=== PATIENT | female | born 1940 | race Caucasian/White ===

== ENCOUNTER 2020-02-24 13:50 | Emergency (ER) | payer MEDICARE, SELFPAY ==
[2020-02-24 14:06] VITALS: BP 146/82; PULSE 88; RESP 18; TEMP 37; O2SAT 98
--- NOTE | 2020-02-24 14:16 | ED.SKABFB ---
HPI - Skin/Abscess/Foreign Bdy General Chief complaint: Skin/Abscess/Foreign Body Stated complaint: swollen feet/legs Time Seen by Provider: 02/24/20 14:17 Source: patient Mode of arrival: ambulatory Limitations: no limitations History of Present Illness HPI narrative: Genoveva Sharp is 79 yo female with PMH of dementia, mild hypertension, comes to express care with pressure sores on her toes, and swelling of legs that has been present for weeks. She states she finds it hard to walk because of her toes and toenails that need to be cut and debrided by commercial relief driver Related Data Home Medications Medication Instructions Recorded Confirmed memantine mg 02/24/20 memantine mg 02/24/20 sertraline mg 02/24/20 Allergies Allergy/AdvReac Type Severity Reaction Status Date / Time Sulfa (Sulfonamide Allergy Mild Confusion Verified 09/14/15 10:37 Antibiotics) levofloxacin Allergy Unknown Verified 08/24/12 10:18 sulfanilamide Allergy Unknown Verified 07/08/10 09:59 Review of Systems Review of Systems: Narrative: CONSTITUTIONAL: Denies fever, chills, sweats. EYES: Denies visual changes, redness, discharge. ENT: Denies rhinorrhea, congestion, sore throat, otalgia. CARDIOVASCULAR: Denies chest pain, palpitations, edema. RESPIRATORY: Denies dyspnea, wheezing, cough GASTROINTESTINAL: Denies abdominal pain, nausea, vomiting, diarrhea. GENITOURINARY: Denies dysuria, hematuria, abnormal discharge SKIN: Denies rash or itching. NEUROLOGIC: Denies numbness, or focal weakness. PSYCHIATRIC: Denies anxiety or depression. Mild swelling of legs bilaterally; those are mildly inflamed with calluses and nails that need to be trimmed PMFSH Family History Family History Other Heart disease Hypertension Social History Social History Smoking packs per day: 0.25 Smoking cigarettes per day: 5.0 Smoking status: Current every day smoker Tobacco type: cigarettes Alcohol intake: former Comments At time of signature, I agree with nursing past medical, surgical, social and family history. There is no relevant family history pertinent to the presenting complaint. Exam Narrative: Exam Narrative: GENERAL: This is a well-nourished, well-developed patient, in mild distress. HEAD: normocephalic, atraumatic. EYES: Sclera clear/white. Vision is grossly intact. EARS: External ears normal, a. Hearing grossly intact. NOSE: External nose normal without nasal discharge, nares without redness, no rhinorrhea. THROAT: Mucous membranes moist NECK: Neck supple, r CARDIOVASCULAR: Regular rate and rhythm without murmurs, gallops, or rubs. RESPIRATORY: Clear to auscultation. Breath sounds equal bilaterally. No wheezes, rales, or rhonchi. GASTROINTESTINAL: Abdomen soft, SKIN: warm, intact with no suspicious lesions or rash, good texture and turgor. NEURO: awake, alert, and oriented to person, place and time. She tends to repeat stories and explanations; there were no obvious focal neurologic abnormalities. Steady gait EXTREMITIES: Normal range of motion. Does have pressures calluses and nails need to be trimmed; she does not have pitting edema of her legs although there is swelling and her lower legs right greater than left, appears less than 3 cm difference, knee replacement on R with some discomfort BACK: Nontender without deformity Course Course Emergency Course: Referred back to her commercial relief driver appointment this week for attention to her feet Discussed with daughter giving her different shoes decrease pressure on toes and bottom of feet Demonstrated wrap of using Eduardo of lower legs when she is sitting or having her legs elevated to decrease pressure She call PCP in the morning for repeat blood work Vital Signs Vital signs: Vital Signs Temperature 98.6 F 02/24/20 14:06 Pulse Rate 88 02/24/20 14:06 Respiratory Rate 18 02/10
== END 2020-02-24 14:52 | disposition home or self-care (01) ==
PROVIDERS: Emergency Provider Nurse Practitioner; PCP Nurse Practitioner Psychiatric/Mental Health
DX: R60.0 Localized edema (principal); L53.8 Other specified erythematous conditions; F03.90 Unspecified dementia, unspecified severity, without behavioral disturbance, psychotic disturbance, mood disturbance, and anxiety; I10 Essential (primary) hypertension; F17.210 Nicotine dependence, cigarettes, uncomplicated
CPT/HCPCS: 99212; G0463

== ENCOUNTER 2020-08-04 10:16 | Emergency (ER) | payer MEDICARE, SELFPAY ==
--- NOTE | ~2020-08-04 | XR_ITS ---
EXAMINATION: XR chest 2V EXAM DATE: 08/04/2020 11:06 INDICATION: Dizziness, frequent falls. Transient alteration of awareness. TECHNIQUE: Frontal and lateral projections of the chest obtained and reviewed. Comparison is made to prior examination from 05/25/2012. FINDINGS: Compared to prior examination, development of some prominent basilar reticulation, suspecte d most likely chronic interstitial lung disease given that heart is within normal size limits. The brice ngs are clear. There are no pleural effusions. Cardiomediastinal silhouette is normal. There is no pneumothorax suspected. The bones and soft tissues are unremarkable. IMPRESSION: Development of some prominent basilar reticulation suspected most likely chronic intersti tial lung disease. Reviewed, dictated and finalized at location B. TIC CUTTER IMPRESSION: Development of some prominent basilar reticulation suspected most l ikely chronic interstitial lung disease.
--- NOTE | ~2020-08-04 | CT_ITS ---
EXAMINATION: CT brain wo con DATE: 08/04/2020 11:03 INDICATION: Head injury. TECHNIQUE: Computed tomography (CT) of the head was performed without intravenous contrast. The mA wa s adjusted according to patient size. Iterative reconstruction technique was employed. The dose-lengt h product was 605.33 mGy-cm. COMPARISON: Head CT 10/03/2009 FINDINGS: There are scattered areas of low attenuation in the cerebral white matter. There is no intr acranial hemorrhage, acute infarction, or abnormal intracranial mass lesion. There is an old lacunar infarct in right caudate nucleus. The ventricles are normal in size. There is mild mucosal thickening in the ethmoid sinuses. The mastoid air cells are normal. The orbits are normal. There is frontal sc alp soft tissue swelling. IMPRESSION: 1. Old lacunar infarct in right caudate nucleus. 2. Worsened extensive nonspecific cerebral white matter disease, which likely represents chronic smal l vessel ischemic disease. Reviewed, dictated and finalized at location A. HT SHIFTER IMPRESSION: 1. Old lacunar infarct in right caudate nucleus. 2. Worsened extensive nonspecific cerebral white matter disease, which likely r epresents chronic small vessel ischemic disease.
--- NOTE | 2020-08-04 10:16 | ED.DIZZY ---
HPI - Dizziness General Chief Complaint: Dizziness Stated Complaint: fall, dizzy Source: EMS Mode of arrival: EMS Limitations: dementia History of Present Illness HPI Narrative: Patient is an 79-year-old female with a history of Alzheimer's dementia who presents for evaluation of dizziness and a ground level fall at home earlier this morning. Patient is not able to provide history due to degree of Alzheimer's, she is denying any complaints at this time. She is alert to person, not to place or time. Apparently, patient was evaluated at [facility] after having a fall overnight and was discharged home with diagnosis of UTI given a prescription for an antibiotic. Patient has not filled that yet this morning. Per EMS, family called because she was not able to stand without falling. Related Data Home Medications Medication Instructions Recorded Confirmed memantine mg 02/24/20 memantine mg 02/24/20 sertraline mg 02/24/20 Allergies Allergy/AdvReac Type Severity Reaction Status Date / Time Sulfa (Sulfonamide Allergy Mild Confusion Verified 08/04/20 10:37 Antibiotics) levofloxacin Allergy Unknown Unknown Verified 08/04/20 10:37 sulfanilamide Allergy Unknown Unknown Verified 08/04/20 10:37 Review of Systems Review of Systems: ROS unobtainable: Yes unobtainable due to medical condition PMFSH Past Medical History Medical History Dementia Hypertension Smoking Family History Family History Other Heart disease Hypertension Social History Social History Smoking packs per day: 0.25 Smoking cigarettes per day: 5.0 Smoking status: Current every day smoker Tobacco type: cigarettes Alcohol intake: former Exam Narrative: Exam Narrative: GENERAL: Awake, alert, conversant HEAD: Normocephalic, abrasion to forehead EYES: 2+ PERRLA and EOMI. ENT: Nares clear, no rhinorrhea or epistaxis. Mucous membranes moist. NECK: Supple. CHEST: No respiratory distress, breathing even and non labored HEART: Regular rate, sinus rhythm ABDOMEN:Non distended, non tender EXTREMITIES: Normal range of motion. No edema. SKIN: Warm, dry, no rash. NEURO:No focal deficits. Alert and oriented x1. Pt ambulatory with a narrow based steady gait. No ataxia. Does not require assistance with ambulation. Course Vital Signs Vital signs: Vital Signs Temperature 36.3 C L 08/04/20 10:23 Pulse Rate 78 08/04/20 10:23 Respiratory Rate 18 08/04/20 10:23 Blood Pressure 121/68 08/04/20 10:23 Pulse Oximetry 98 08/04/20 10:23 Temperature 36.3 C L 08/04/20 10:23 Pulse Rate 74 08/04/20 14:01 Respiratory Rate 18 08/04/20 14:01 Blood Pressure 116/93 H 08/04/20 14:01 Pulse Oximetry 100 08/04/20 14:01 MDM - Dizziness MDM Narrative Medical decision making narrative: Patient presented for evaluation of a fall, repeat evaluation after discharge from another facility. At the time of assessment, patient has a history of advanced Alzheimer's dementia per family, typically is only oriented to person, not reliably otherwise oriented. Patient not able to provide any history. She has a hematoma to her forehead without laceration. She is not reporting any pain and her vital signs are stable. Laboratory results and imaging results are reassuring. Pt with history of CVA per family and I did discuss the CT scan results with them. Patient was actually able to stand up, get entirely dressed and ambulate to a chair independently without any unsteadiness. Her urinalysis is completely normal and not consistent with a urinary tract infection. I do not have access to records from other facility, I did explain the patient's laboratory results and imaging results over the phone to her daughter who is her power of assistant attorney general. At this point, they do not wish for her to be admitted and will work on placement from at home.
[2020-08-04 10:23] VITALS: BP 121/68; PULSE 78; RESP 18; TEMP 36.3; O2SAT 98
--- NOTE | 2020-08-04 10:24 | ECG_ITS ---
Measurements Intervals [place] Rate: 68 P: 29 MN: 162 QRS: -23 QRSD: 83 T: -6 QT: 363 QTc: 388 Interpretive Statements SINUS RHYTHM LOW QRS VOLTAGE IN PRECORDIAL LEADS POOR R WAVE PROGRESSION, ANTERIOR LEADS BORDERLINE T WAVE ABNORMALITY- ANTEROLAT/INF LEADS BASELINE ARTIFACT- I, II, AVR, AVL, AVF, V1-V2 BORDERLINE ECG Electronically Signed On 08-04-2020 11:00:56 COMMERCIAL HVAC SERVICE TECHNICIAN by Robles Mims D.O.
[2020-08-04] MEDS: SODIUM CHLORIDE 0.9% IV 1,000 ML 999 ML IV CONT (12:17)
--- NOTE | 2020-08-04 12:21 | PC.NURSE ---
Spoke with Eusebio from lab phlebotomy, multiple RN's attempted blood draw. Pt here 2hrs and still unable to get blood. He will come to ER to attempt.
[2020-08-04 12:57] LABS: Basophils Percent Auto 0.2 % (0.2-1.2); Eosinophils Absolute Auto 0.2 K/mm3 (0-0.3); Eosinophils Percent Auto 2.2 % (0-4.4); Hematocrit 34.8 % (37.0-47.0); Hemoglobin 11.1 g/dL (12.0-15.0); Immature Granulocyte Absolute 0.03 K/mm3 (0.00-0.031); Immature Granulocyte Percent A 0.3 % (0-0.5); Lymphocytes Absolute Auto 0.91 K/mm3 (0.9-3.2); Lymphocytes Percent Auto 10.2 % (18.3-44.2); Mean Corpuscular HGB Conc 31.9 g/dl (32-36); Mean Corpuscular Hemoglobin 32.1 pg (26-34); Mean Corpuscular Volume 100.6 fl (80-100); Monocytes Absolute Auto 0.4 K/mm3 (0.1-0.6); Monocytes Percent Auto 4.9 % (2.6-8.5); Neutrophils Absolute Auto 7.3 K/mm3 (1.3-6.7); Neutrophils Percent Auto 82.2 % (45.5-73.1); Platelet Count Result 288 k/mm3 (150-375); Red Blood Count 3.46 M/mm3 (4.2-5.4); Red Cell Distribution Width 14.1 % (11.5-14.5); White Blood Count 8.9 K/mm3 (4.5-10.0)
[2020-08-04 13:09] LABS: Anion Gap 6 mmol/L (8-16); Blood Urea Nitrogen 30 mg/dL (7-17); Calcium 9.4 mg/dL (8.4-10.2); Carbon Dioxide 28 mmol/L (22-30); Chloride 104 mmol/L (98-107); Estimated CRCL calculation 36 ml/min; Estimated Glomerular Filt Rate 53; Glucose 100 mg/dL (65-105); Potassium 4.5 mmol/L (3.4-5.0); Sodium 138 mmol/L (137-145)
[2020-08-04 13:40] LABS: Add Urine Microscopic? NO; Appearance Urine Clear (Clear); Bilirubin Urine Negative (Negative); Blood Urine Negative (Negative); Color Urine Yellow (Yellow); Glucose Urine UA Negative (Negative); Ketones Urine Negative (Negative); Leukocyte Esterase Ur Negative LEU/UL (Negative); Nitrate Urine Negative (Negative); Protein Urine Negative (Negative); RBC Urine 0-2 /hpf (0-2); Specific Grav Ur 1.019 (1.001-1.035); Urobilinogen Urine Negative mg/dL (<2.0); WBC Urine 0-3 /hpf
[2020-08-04 14:01] VITALS: BP 116/93; PULSE 74; RESP 18; O2SAT 100
--- NOTE | 2020-08-04 14:02 | PC.NURSE ---
This RN into pts room. Pt has gotten out of bed ( that had both side rails up) and was pulling equipment off barr. Pt has pulled her IV out and had put her shoes and sweatshirt back on. Pt was walking back and forth in room. This RN tired to get pt back into bed but was unsuccessful. Placed pt in chair and called for viscose cellar charge hand. senior j2ee developer came and called for a sitter. Sitter is currently at bedside.
--- NOTE | 2020-08-07 16:11 | ED.GENADULT ---
HPI - General Adult General Chief complaint: Dizziness Stated complaint: fall, dizzy Source: patient and EMS Mode of arrival: wheelchair Limitations: dementia History of Present Illness HPI narrative: Patient is an 79-year-old female with a history of Alzheimer's dementia who presents to our facility for evaluation of reported shortness of breath. Patient's daughter states that she had been feeling unwell today, had briefly reported some shortness of breath to her daughter while at rest earlier. Patient is currently denying any shortness of breath. States that she feels good. She denies cough or wheezing. She denies chest pain. Patient's daughter states she has been tolerating oral intake. No fevers. She has not had any cough. Patient has had increased difficulty with ADLs over the past week. They have someone coming to evaluate the patient for placement in a [place] [facility] facility tomorrow per daughter. No recent falls or injuries. Patient's daughter also thinks she has been a little bit more confused from baseline over the past week in general. Related Data Home Medications Medication Instructions Recorded Confirmed memantine mg 02/24/20 memantine mg 02/24/20 sertraline mg 02/24/20 Allergies Allergy/AdvReac Type Severity Reaction Status Date / Time Sulfa (Sulfonamide Allergy Mild Confusion Verified 08/04/20 10:37 Antibiotics) levofloxacin Allergy Unknown Unknown Verified 08/04/20 10:37 sulfanilamide Allergy Unknown Unknown Verified 08/04/20 10:37 Review of Systems Review of Systems: Narrative: Per daughter: CONSTITUTIONAL: Denies fever EYES: Denies visual changes ENT: Denies rhinorrhea, congestion CARDIOVASCULAR: Denies chest pain RESPIRATORY: Denies cough, reports earlier shortness of breath GASTROINTESTINAL: Denies abdominal pain, nausea, vomiting GENITOURINARY: Denies dysuria or hematuria. SKIN: Denies rash or itching. MUSCULOSKELETAL: Denies back pain NEUROLOGIC: Denies headache, numbness PMFSH Past Medical History Medical History Dementia Hypertension Smoking Family History Family History Other Heart disease Hypertension Social History Social History Smoking packs per day: 0.25 Smoking cigarettes per day: 5.0 Smoking status: Current every day smoker Tobacco type: cigarettes Alcohol intake: former Exam Narrative: Exam Narrative: GENERAL: Awake, alert, conversant HEAD: Normocephalic, atraumatic. EYES: PERRLA and EOMI. ENT: Nares clear, no rhinorrhea or epistaxis. Mucous membranes moist. NECK: Supple. CHEST: No respiratory distress, breathing even and non labored HEART: Regular rate, sinus rhythm ABDOMEN:Non distended, non tender EXTREMITIES: Normal range of motion. No edema. SKIN: Warm, dry, no rash. NEURO:No focal deficits. Alert and oriented x1-2. Patient ambulatory in room from wheelchair to bed without difficulty or need for assistance. Course Vital Signs Vital signs: Vital Signs Temperature 36.3 C L 08/04/20 10:23 Pulse Rate 78 08/04/20 10:23 Respiratory Rate 18 08/04/20 10:23 Blood Pressure 121/68 08/04/20 10:23 Pulse Oximetry 98 08/04/20 10:23 Temperature 36.3 C L 08/04/20 10:23 Pulse Rate 74 08/04/20 14:01 Respiratory Rate 18 08/04/20 14:01 Blood Pressure 116/93 H 08/04/20 14:01 Pulse Oximetry 100 08/04/20 14:01 Medical Decision Making Vital Signs Vital Signs: Vital Signs Temperature 36.3 C L 08/04/20 10:23 Pulse Rate 78 08/04/20 10:23 Respiratory Rate 18 08/04/20 10:23 Blood Pressure 121/68 08/04/20 10:23 Pulse Oximetry 98 08/04/20 10:23 Temperature 36.3 C L 08/04/20 10:23 Pulse Rate 74 08/04/20 14:01 Respiratory Rate 18 08/04/20 14:01 Blood Pressure 116/93 H 08/04/20 14:01 Pulse Oximetry 100 08/04/20 14:01 Lab Data Result diagrams: 08/04/20 12:49
[2020-08-07 17:57] LABS: Add Urine Microscopic? YES; Appearance Urine Clear (Clear); Bilirubin Urine Negative (Negative); Blood Urine Negative (Negative); Color Urine Yellow (Yellow); Glucose Urine UA Negative (Negative); Ketones Urine Negative (Negative); Leukocyte Esterase Ur 1+ LEU/UL (Negative); Mucus Urine Rare /lpf; Nitrate Urine Negative (Negative); Protein Urine 1+ mg/dL (Negative); RBC Urine 0-2 /hpf (0-2); Squamous Epithelial Cell Urine Occasional /hpf (Few); WBC Urine 0-3 /hpf
== END 2020-08-04 15:28 | disposition home or self-care (01) ==
PROVIDERS: Emergency Provider Emergency Medicine; PCP Nurse Practitioner Psychiatric/Mental Health
DX: G30.9 Alzheimer's disease, unspecified (principal); F02.80 Dementia in other diseases classified elsewhere, unspecified severity, without behavioral disturbance, psychotic disturbance, mood disturbance, and anxiety; I10 Essential (primary) hypertension; F17.210 Nicotine dependence, cigarettes, uncomplicated; W19.XXXA Unspecified fall, initial encounter; R94.31 Abnormal electrocardiogram [ECG] [EKG]; R90.82 White matter disease, unspecified; R91.8 Other nonspecific abnormal finding of lung field
CPT/HCPCS: 36415; 70450; 71046; 80048; 81001; 81003; 85025; 93005; 96360; 99284; J7030

== ENCOUNTER 2020-08-07 16:02 | Emergency (ER) | payer MEDICARE, SELFPAY ==
--- NOTE | ~2020-08-07 | XR_ITS ---
EXAMINATION: XR chest 2V DATE: 08/07/2020 17:14 INDICATION: Dyspnea. Confusion. TECHNIQUE: Frontal and lateral views of the chest were obtained. COMPARISON: Chest 2 views 08/04/2020, 05/25/2012 FINDINGS: There are interstitial opacities in the mid and lower lung zones. No pleural effusion or pn eumothorax. The heart size is normal. Surgical clips in the right upper quadrant are likely from chol ecystectomy. There are multiple chronic vertebral body fractures. IMPRESSION: 1. Interstitial opacities in the mid and lower lung zones, consistent with mild pulmonary edema versu s atelectasis/scarring. Reviewed, dictated and finalized at location A. KERCHIEF CUTTER IMPRESSION: 1. Interstitial opacities in the mid and lower lung zones, consistent with mild pulmonary edema versus atelectasis/scarring.
--- NOTE | ~2020-08-07 | CT_ITS ---
EXAMINATION: CT brain wo con DATE: 08/07/2020 17:01 INDICATION: Altered mental status. TECHNIQUE: Computed tomography (CT) of the head was performed without intravenous contrast. The mA wa s adjusted according to patient size. Iterative reconstruction technique was employed. The dose-lengt h product was 605.33 mGy-cm. COMPARISON: Head CT 08/04/2020 FINDINGS: There are scattered areas of low attenuation in the cerebral white matter. There is old inf arct in the right caudate nucleus. There is no intracranial hemorrhage, acute infarction, or abnormal intracranial mass lesion. The ventricles are normal in size. There is mild mucosal thickening in the paranasal sinuses. The mastoid air cells are normal. IMPRESSION: 1. Old lacunar infarct in the right caudate nucleus. 2. Stable extensive nonspecific cerebral white matter disease, which likely represents chronic small vessel ischemic disease. Reviewed, dictated and finalized at location A. CIPAL EXAMINER IMPRESSION: 1. Old lacunar infarct in the right caudate nucleus. 2. Stable extensive nonspecific cerebral white matter disease, which likely rep resents chronic small vessel ischemic disease.
[2020-08-07 16:18] VITALS: BP 126/68; PULSE 87; RESP 18; TEMP 36.3; O2SAT 100
--- NOTE | 2020-08-07 16:27 | ED.SOB ---
HPI - SOB/Dyspnea General Chief Complaint: Shortness of Breath/Dyspnea Stated Complaint: ALTERED RECENT FALL Time Seen by Provider: 08/07/20 16:08 Source: patient and family Mode of arrival: wheelchair Limitations: dementia History of Present Illness HPI Narrative: Patient is an 79-year-old female with a history of Alzheimer's dementia who presents to our facility for evaluation of reported shortness of breath. Patient's daughter states that she had been feeling unwell today, had briefly reported some shortness of breath to her daughter while at rest earlier. Patient is currently denying any shortness of breath. States that she feels good. She denies cough or wheezing. She denies chest pain. Patient's daughter states she has been tolerating oral intake. Pt daughter states she is not working hard to breathe in her opinion. No fevers. She has not had any cough. Patient has had increased difficulty with ADLs over the past week. They have someone coming to evaluate the [facility] per daughter. No recent falls or injuries. Patient's daughter also thinks she has been a little bit more confused from baseline over the past week in general. Related Data Home Medications Medication Instructions Recorded Confirmed memantine mg 02/24/20 memantine mg 02/24/20 sertraline mg 02/24/20 Allergies Allergy/AdvReac Type Severity Reaction Status Date / Time Sulfa (Sulfonamide Allergy Mild Confusion Verified 08/04/20 10:37 Antibiotics) levofloxacin Allergy Unknown Unknown Verified 08/04/20 10:37 sulfanilamide Allergy Unknown Unknown Verified 08/04/20 10:37 Review of Systems Review of Systems: Narrative: Per daughter: CONSTITUTIONAL: Denies fever EYES: Denies visual changes ENT: Denies rhinorrhea, congestion CARDIOVASCULAR: Denies chest pain RESPIRATORY: Denies cough or dyspnea in room. GASTROINTESTINAL: Denies abdominal pain, nausea, vomiting GENITOURINARY: Denies dysuria or hematuria. SKIN: Denies rash MUSCULOSKELETAL: Denies back pain NEUROLOGIC: Denies headache PMF Past Medical History Medical History Dementia Hypertension Smoking Family History Family History Other Heart disease Hypertension Social History Social History Smoking packs per day: 0.25 Smoking cigarettes per day: 5.0 Smoking status: Current every day smoker Tobacco type: cigarettes Alcohol intake: former Exam Narrative: Exam Narrative: GENERAL: Awake, alert, conversant HEAD: Normocephalic, atraumatic. EYES: 2+ PERRLA and EOMI. ENT: Nares clear, no rhinorrhea or epistaxis. Mucous membranes moist. NECK: Supple. CHEST: No respiratory distress, breathing even and non labored, lungs are clear to auscultation bilaterally, no tachypnea HEART: Regular rate, sinus rhythm ABDOMEN:Non distended, non tender on exam in all 4 quadrants EXTREMITIES: Normal range of motion. No edema. SKIN: Warm, dry, no rash. NEURO:No focal deficits. Alert and oriented x1-2. Patient ambulatory from wheelchair to bed without deficits, does not require assistance. She is not unsteady. Course Vital Signs Vital signs: Vital Signs Temperature 36.3 C L 08/07/20 16:18 Pulse Rate 87 08/07/20 16:18 Respiratory Rate 18 08/07/20 16:18 Blood Pressure 126/68 08/07/20 16:18 Pulse Oximetry 100 08/07/20 16:18 Temperature 36.3 C L 08/07/20 16:18 Pulse Rate 87 08/07/20 16:18 Respiratory Rate 18 08/07/20 16:18 Blood Pressure 126/68 08/07/20 16:18 Pulse Oximetry 100 08/07/20 16:18 MDM - SOB/Dyspnea MDM Narrative Medical decision making narrative: Patient is an 79-year-old female who returns to the ER for a possible episode of shortness of breath, but no reported complaints at the time of assessment. Daughter had initially been worried and given her degree of dementia is of
[2020-08-07] MEDS: SODIUM CHLORIDE 0.9% IV 500 ML 999 ML IV CONT (17:38)
[2020-08-07 17:43] LABS: Basophils Percent Auto 0.6 % (0.2-1.2); Eosinophils Absolute Auto 0.3 K/mm3 (0-0.3); Eosinophils Percent Auto 4.5 % (0-4.4); Hematocrit 33.2 % (37.0-47.0); Hemoglobin 10.9 g/dL (12.0-15.0); Immature Granulocyte Absolute 0.02 K/mm3 (0.00-0.031); Immature Granulocyte Percent A 0.3 % (0-0.5); Lymphocytes Percent Auto 15.3 % (18.3-44.2); Mean Corpuscular HGB Conc 32.8 g/dl (32-36); Mean Corpuscular Hemoglobin 32.2 pg (26-34); Mean Corpuscular Volume 97.9 fl (80-100); Mean Platelet Volume 9.3 fl (7.4-10.4); Monocytes Absolute Auto 0.7 K/mm3 (0.1-0.6); Monocytes Percent Auto 9.1 % (2.6-8.5); Neutrophils Percent Auto 70.2 % (45.5-73.1); Platelet Count Result 278 k/mm3 (150-375); Red Blood Count 3.39 M/mm3 (4.2-5.4); Red Cell Distribution Width 13.8 % (11.5-14.5); White Blood Count 7.2 K/mm3 (4.5-10.0)
[2020-08-07 17:51] LABS: Prothrombin Time 13.9 Seconds (11.1-14.7)
[2020-08-07 17:55] LABS: Alanine Aminotransferase 19 U/L (4-35); Albumin Level 3.3 g/dL (3.5-5.1); Alkaline Phosphatase 77 U/L (38-126); Anion Gap 4 mmol/L (8-16); Aspartate Amino Transferase 38 U/L (14-36); Bilirubin,Total 0.4 mg/dL (0.2-1.3); Blood Urea Nitrogen 23 mg/dL (7-17); Calcium 9.2 mg/dL (8.4-10.2); Carbon Dioxide 33 mmol/L (22-30); Chloride 103 mmol/L (98-107); Estimated CRCL calculation 33 ml/min; Estimated Glomerular Filt Rate 48; Glucose 106 mg/dL (65-105); Potassium 4.2 mmol/L (3.4-5.0); Sodium 140 mmol/L (137-145)
[2020-08-07 18:00] VITALS: BP 132/68; PULSE 68; RESP 18; O2SAT 99
[2020-08-07 18:07] LABS: NT Pro B Type Natriuretic Pept 532 PG/ML (5-100); Troponin I < 0.012 ng/mL (0.000-0.034)
[2020-08-07 19:10] VITALS: BP 134/59; PULSE 87; RESP 18; O2SAT 98
== END 2020-08-07 19:12 | disposition home or self-care (01) ==
PROVIDERS: Emergency Provider Emergency Medicine; PCP Nurse Practitioner Psychiatric/Mental Health
DX: F03.90 Unspecified dementia, unspecified severity, without behavioral disturbance, psychotic disturbance, mood disturbance, and anxiety (principal); R90.82 White matter disease, unspecified; I10 Essential (primary) hypertension; F17.210 Nicotine dependence, cigarettes, uncomplicated
CPT/HCPCS: 36415; 70450; 71046; 80053; 83880; 84484; 85025; 85610; 85730; 96360; 99284; J7040